=== PATIENT | female | born 1965 | race Caucasian/White ===

== ENCOUNTER 2017-01-08 10:34 | Emergency (ER) | payer BC ==
[2017-01-08 10:40] VITALS: BP 151/90
--- NOTE | 2017-01-08 10:56 | ER Document Report ---
ED General - General Chief Complaint: Headache Stated Complaint: HEADACHE Time Seen by Provider: 01/08/17 10:47 Mode of Arrival: Ambulatory Information source: Patient Notes: This 51-year-old female patient comes emergency room with 3 day history of sinus congestion pressure with headache which is getting worse. She has had some cough without sputum. She has had some shortness of breath and sore throat. She does smoke 2 packs per day. She does have a history of COPD. She uses an albuterol inhaler as needed, use it this morning and it did help some. She reports she has felt warm but has not had fevers that she knows of. TRAVEL OUTSIDE OF THE [place] 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 Lives with: Family Family History: Reviewed & Not Pertinent - Past Medical History Cardiac Medical History: Reports: None Pulmonary Medical History: Reports: Hx COPD Neurological Medical History: Reports: None Endocrine Medical History: Reports: None Renal/ Medical History: Reports: None GI Medical History: Reports: None Musculoskeltal Medical History: Reports None Psychiatric Medical History: Reports: Hx Depression Surgical Hx: Negative - Immunizations Hx Diphtheria, Pertussis, Tetanus Vaccination: No Review of Systems - Review of Systems Constitutional: No symptoms reported EENT: Sinus pressure, Throat pain Cardiovascular: No symptoms reported Respiratory: Cough, Short of breath, Wheezing. denies: Sputum Gastrointestinal: No symptoms reported Genitourinary: No symptoms reported Female Genitourinary: Post menopausal Musculoskeletal: No symptoms reported Skin: No symptoms reported Hematologic/Lymphatic: No symptoms reported Neurological/Psychological: No symptoms reported Physical Exam - Vital signs Vitals: Temp Pulse Resp BP Pulse Ox 98.2 F 92 20 151/90 H 91 L 01/08/17 10:39 01/08/17 10:39 01/08/17 10:39 01/08/17 10:39 01/08/17 10:39 Interpretation: Normal - General General appearance: Appears well, Alert In distress: None - HEENT Head: Normocephalic, Atraumatic Eyes: Normal Pupils: PERRL Tympanic membrane: Normal Sinus: Tenderness, Other - There is nasal and sinus congestion with percussion tenderness Pharynx: Normal Neck: Normal - Respiratory Respiratory status: No respiratory distress Breath sounds: Nonproductive cough, Rhonchi, Wheezing - Cardiovascular Rhythm: Regular Heart sounds: Normal auscultation Murmur: No - Abdominal Inspection: Normal - Back Back: Normal - Extremities General upper extremity: Normal inspection General lower extremity: Normal inspection - Neurological Neuro grossly intact: Yes Cognition: Normal Orientation: AAOx4 Va Coma Scale Eye Opening: Spontaneous Va Coma Scale Verbal: Oriented Va Coma Scale Motor: Obeys Commands Barry Coma Scale Total: 15 Speech: Normal Motor strength normal: LUE, RUE, LLE, RLE Sensory: Normal - Psychological Associated symptoms: Normal affect, Normal mood Course - Vital Signs Vital signs: Temp Pulse Resp BP Pulse Ox 98.2 F 92 20 151/90 H 91 L 01/08/17 10:39 01/08/17 10:39 01/08/17 10:39 01/08/17 10:39 01/08/17 10:39 Discharge - Discharge Clinical Impression: Acute exacerbation of chronic obstructive pulmonary disease (COPD) Condition: Stable Disposition: HOME, SELF-CARE Additional Instructions: Bronchitis with Bronchospasm (Wheezing): You have bronchitis with bronchospasm (wheezing). Sometimes people develop wheezing with a chest cold. This occurs either because of an underlying tendency toward asthma or because the virus itself irritates the bronchial tubes. This irritation causes cough, shortness of breath, and wheezing. Emergency treatment of bronchospasm may include adrenaline shots or bronchodilator aerosol. You may feel lightheaded and have a rapid pulse for an hour or two. Rest and get plenty of fluids. At home, we'll treat you with a bronchodilator inhaler. Corticosteroids may be required for some patients. Until you recover, avoid chemical fumes, dusts, pollens, and exercising in very cold or dry air. If you smoke, stop now! Most cases of bronchitis get better without antibiotics. We prescribe antibiotics when we believe bacteria are damaging your airways, or if there's high risk the bronchitis will worsen into pneumonia. Increase your fluid intake. A cool mist humidifier may make your lungs more comfortable. An expectorant (cough medicine that loosens phlegm) can help. Repeated episodes of bronchitis and bronchospasm may result in lung damage -- for example, chronic bronchitis, recurrent pneumonias, or emphysema. If you develop a fever, increased wheezing, chest pain, or severe shortness of breath, you should contact the doctor immediately. TAKE THE MEDICATION PRESCRIBED. USE YOUR INHALER 2 PUFFS EVERY 4 HOURS TODAY. TRY ROBITUSSIN-DM FOR COUGH CONTROL IF NEEDED. DRINK PLENTY OF FLUIDS. REST. STOP SMOKING. FOLLOW UP WITH YOUR DOCTOR IF NOT IMPROVING. RETURN TO THE EMERGENCY ROOM IF ANY NEW OR WORSENING SYMPTOMS. Prescriptions: Doxycycline Hyclate 100 mg PO BID #14 tablet Prednisone [Deltasone 10 mg Tablet] 10 mg PO ASDIR PRN #21 tablet PRN Reason:
== END 2017-01-08 11:00 | disposition home or self-care (01) ==
LOC: ER 10:34
DX: J44.1 Chronic obstructive pulmonary disease with (acute) exacerbation (principal); R51 Headache; F17.210 Nicotine dependence, cigarettes, uncomplicated; Z88.0 Allergy status to penicillin
CPT/HCPCS: 99283

== ENCOUNTER 2018-05-07 07:37 | Day surgery (SDC) | payer BC ==
[~2018-05-07 07:37] MED LIST: PROPOFOL INJ 200 MG/20 ML VIAL IV ONE
[2018-05-07 09:26] VITALS: BP 103/58
--- NOTE | 2018-05-07 13:24 | Operative Report ---
Operative Report DATE OF SURGERY: 05/07/18 Operative Report: The risks, benefits and alternatives of the procedure including the risk of bleeding, perforation requiring surgery have been explained to the patient in detail and informed consent was obtained. The patient is brought back to the endoscopy suite and placed in a left, lateral decubital position. Timeout was called. Propofol medication is administered. A rectal examination is done which did not reveal any masses, tears or fissures. An Olympus videoscope was introduced into the patient's rectum. The scope was then carefully advanced all the way to the cecum. The cecum was identified by the usual anatomical landmarks of the ileocecal valve as well as the appendiceal office. Photodocumentation is obtained. The scope was then sequentially pulled back via the various segments of the colon including the ascending colon, hepatic flexure, transverse colon, splenic flexure, descending colon and finally into the rectosigmoid portions of the colon. Retroflexion maneuver is performed. PREOPERATIVE DIAGNOSIS: Colorectal cancer screening POSTOPERATIVE DIAGNOSIS: Right colon Inflammation status post biopsy. Colon polyp is removed via biopsy forceps and retrieved. Internal hemorrhoids OPERATION: Colonoscopy with biopsy SURGEON: JULIANNA MAN ANESTHESIA: LMAC TISSUE REMOVED OR ALTERED: As noted above. COMPLICATIONS: None. ESTIMATED BLOOD LOSS: None. INTRAOPERATIVE FINDINGS: As noted above. PROCEDURE: Patient tolerated the procedure well. No immediate postprocedure complications are noted. Patient discharged in good condition. Discharge date: . Discharge diet: Regular. Discharge activity: Regular. 2-3-week follow-up to discuss findings. 3-5-year surveillance colonoscopy. Patient is instructed to call the office or proceed to the emergency room should there be any further questions. I will wait on the pathology
== END 2018-05-07 09:25 | disposition home or self-care (01) ==
LOC: END 07:37
PROVIDERS: ATTEND Internal Medicine Gastroenterology
DX: Z12.11 Encounter for screening for malignant neoplasm of colon (principal); K52.9 Noninfective gastroenteritis and colitis, unspecified; K63.5 Polyp of colon; K64.8 Other hemorrhoids; J45.909 Unspecified asthma, uncomplicated; K21.9 Gastro-esophageal reflux disease without esophagitis; J43.9 Emphysema, unspecified; F17.210 Nicotine dependence, cigarettes, uncomplicated; R06.02 Shortness of breath; E66.9 Obesity, unspecified; Z68.33 Body mass index [BMI] 33.0-33.9, adult; Z88.0 Allergy status to penicillin; Z79.51 Long term (current) use of inhaled steroids
CPT/HCPCS: 45380; 88305 ×2; J2704; 811